=== PATIENT | male | born 1985 | race African-American/Black ===

== ENCOUNTER 2019-01-31 06:37 | Day surgery (SDC) | payer MEDICAID ==
[~2019-01-31] VITALS: Ht 185.4 cm; Wt 80.9 kg
[2019-01-31] MEDS ORDERED: LIDOCAINE 4% 50 ML SOLUTION TP ONE (06:38)
[2019-01-31] MEDS ORDERED: ALBUTEROL SULFATE 2.5 MG/0.5 ML NEB SOLUTION NEB ONE (06:38)
[2019-01-31] MEDS ORDERED: LIDOCAINE 2% 30 ML JELLY TP ONE (06:38)
[2019-01-31] MEDS ORDERED: BENZOCAINE 20% 50 MCG/SPRAY 57 GM TP ONE (06:38)
[2019-01-31] MEDS ORDERED: SODIUM CHLORIDE 0.9% 1,000 ML ONE (06:58)
[2019-01-31] MEDS ORDERED: MIDAZOLAM HCL 2 MG/2 ML VIAL ONE (07:09)
[2019-01-31] MEDS ORDERED: FentaNYL CITRATE-PF 100 MCG/2 ML VIAL ONE (07:09)
[2019-01-31] MEDS ORDERED: SODIUM CHLORIDE 0.9% 1,000 ML IV ONE (07:15)
[2019-01-31] MEDS ORDERED: PRED10 PO (07:37)
[2019-01-31] MEDS ORDERED: MONT10TA21 PO (07:37)
[2019-01-31] MEDS ORDERED: MethylPREDNISolone SOD SUCC 125 MG/2 ML VIAL IVP ONE (09:00)
[2019-01-31] MEDS ORDERED: OXYGEN THERAPY IH SCH (20:00)
== END 2019-01-31 10:30 | disposition home or self-care (01) ==
LOC: SURGERY 06:37
PROVIDERS: ATTEND Internal Medicine Critical Care Medicine
DX: R05 Cough (principal); J34.89 Other specified disorders of nose and nasal sinuses; J98.8 Other specified respiratory disorders; J38.4 Edema of larynx; B37.0 Candidal stomatitis
CPT/HCPCS: 31623; 31624; 71045; 87015; 87070; 87101; 87205; 87206; 87220; J2250; J2930; J3010; J7030; 88108; 88312